=== PATIENT | male | born 1995 | race American Indian/Alaskan Native ===

== ENCOUNTER 2016-11-23 12:07 | Emergency (ER) | payer OTHER ==
[2016-11-23 12:15] VITALS: BP 126/72
[2016-11-23] MEDS ORDERED: XYLOCAINE 1% MPF 5 mL INFILTRATI ONE (13:27)
[2016-11-23] MEDS ORDERED: ROCEPHIN IM ONE (13:27)
--- NOTE | 2016-11-23 13:47 | Emergency Department Report ---
ED Extremity Problem HPI - General Chief complaint: Extremity Injury, Lower Stated complaint: BOTH FEET PAIN/POSS INFECTION/SWOLLEN Time Seen by Provider: 11/23/16 13:18 Source: patient Mode of arrival: Ambulatory Limitations: No Limitations - History of Present Illness Initial comments: PT states he has dealt with athlete's foot since he was in high school. PT states he has never been seen by a medical profession for treatment because he always had improvement with vinegar soaks and otc medications and frequent sock changes. PT states the rash between his R toes is improving. PT states two nights ago he was cleaning the freezer and he stepped in some water with his left foot. PT states since that time, he has had increase in L foot pain, swelling and feels "burning" PT states he is supposed to work tonight. PT unsure if he can work due to foot pain MD Complaint: extremity pain -: Gradual Location: bilateral lower extremity History of Same: Yes Severity scale (0 -10): 10 Quality: constant Consistency: constant Improves with: elevation (mild ), rest (mild ) Worsens with: weight bearing, walking, palpation Associated Symptoms: denies other symptoms. denies: chest pain, fever - Related Data Previous Rx's Medication Instructions Recorded Last Taken Type Acetaminophen/Codeine [Tylenol #3] 1 tab PO Q6H PRN #8 tab 11/23/16 Unknown Rx Cephalexin [Keflex] 500 mg PO Q6HR #40 capsule 11/23/16 Unknown Rx Clotrimazole [Athlete's Foot] 1 applicatio TP BID 30 Days 11/23/16 Unknown Rx Ibuprofen [Motrin] 600 mg PO Q8H PRN #15 tablet 11/23/16 Unknown Rx Sulfamethoxazole/Trimethoprim 1 each PO BID #20 tablet 11/23/16 Unknown Rx [Bactrim DS TAB] Allergies Allergy/AdvReac Type Severity Reaction Status Date / Time No Known Allergies Allergy Unverified 11/23/16 12:11 ED Review of Systems ROS: Stated complaint: BOTH FEET PAIN/POSS INFECTION/SWOLLEN Other details as noted in HPI Comment: All other systems reviewed and negative Constitutional: denies: chills, fever Cardiovascular: edema (localized to L foot ) Gastrointestinal: denies: nausea, vomiting Musculoskeletal: as per HPI Skin: as per HPI, rash, change in color ED Past Medical Hx - Past Medical History Previous Medical History?: No - Surgical History Past Surgical History?: No - Social History Smoking Status: Current Every Day Smoker Substance Use Type: Alcohol - Medications Home Medications: Home Medications Medication Instructions Recorded Confirmed Last Taken Type Acetaminophen/Codeine [Tylenol #3] 1 tab PO Q6H PRN #8 tab 11/23/16 Unknown Rx Cephalexin [Keflex] 500 mg PO Q6HR #40 capsule 11/23/16 Unknown Rx Clotrimazole [Athlete's Foot] 1 applicatio TP BID 30 Days 11/23/16 Unknown Rx Ibuprofen [Motrin] 600 mg PO Q8H PRN #15 tablet 11/23/16 Unknown Rx Sulfamethoxazole/Trimethoprim 1 each PO BID #20 tablet 11/23/16 Unknown Rx [Bactrim DS TAB] ED Physical Exam - General Limitations: No Limitations General appearance: alert, in no apparent distress - Head Head exam: Present: atraumatic, normocephalic, normal inspection - Eye Eye exam: Present: normal appearance, EOMI. Absent: conjunctival injection - ENT ENT exam: Present: normal exam, mucous membranes moist, normal external ear exam - Neck Neck exam: Present: normal inspection, full ROM - Respiratory Respiratory exam: Present: normal lung sounds bilaterally. Absent: respiratory distress - Cardiovascular Cardiovascular Exam: Present: regular rate, normal rhythm - Extremities Exam Extremities exam: Present: tenderness, pedal edema. Absent: normal inspection - Expanded Lower Extremity Exam Right Foot/Toe exam: Present: full ROM. Absent: normal inspection (rash inbetween toes ), tenderness, swelling Left Lower Leg exam: Present: normal inspection, full ROM. Absent: tenderness Ankle exam: Present: normal inspection, full ROM. Absent: tenderness, swelling Foot/Toe exam: Present: full ROM, tenderness, swelling, erythema. Absent: normal inspection (scaly rash inbetween webbing of toes. L foot with erythema, warmth and edema ), abrasion, subungual hematoma - Back Exam Back exam: Present: normal inspection, full ROM - Neurological Exam Neurological exam: Present: alert, oriented X3, normal gait - Psychiatric Psychiatric exam: Present: normal affect, normal mood - Skin Skin exam: Present: warm, dry, other (cracked scaly skin to rod toe webs). Absent: normal color ED Course Vital Signs 11/23/16 12:11 Temperature 97.3 F L Pulse Rate 63 Respiratory 18 Rate Blood Pressure 126/72 O2 Sat by Pulse 99 Oximetry - Reevaluation(s) Reevaluation #1: 11/23/16 14:01 PT given 1gm Rocephin IM for his cellulitis. PT given strict return precautions. PT has no questions at this time. - Pulse Oximetry Interpretation Digit-Finger Initial Pulse Oximetry Readin Actions Taken: none ED Medical Decision Making - Differential Diagnosis tinea pedis, cellulitis Critical Care Time: No Critical care attestation.: If time is entered above; I have spent that time in minutes in the direct care of this critically ill patient, excluding procedure time. ED Disposition Clinical Impression: Tinea pedis of both feet, Cellulitis of left foot Disposition: TO HOME OR SELFCARE Is pt being admited?: No Does the pt Need Aspirin: No Condition: Stable Instructions: Tinea Pedis (ED), Cellulitis (ED) Additional Instructions: keep your feet clean and dry take the antibiotics as prescribed return to the ED in 2 days for recheck If the redness, swelling or area of pain increases, or you develop fevers or vomiting, return to the ED No driving or alcohol after taking Tylenol #3 Try controlling your pain with Motrin before taking the Tylenol #3 Prescriptions: Acetaminophen/Codeine [Tylenol #3] 1 tab PO Q6H PRN #8 tab PRN Reason: Pain , Severe (7-10) Cephalexin [Keflex] 500 mg PO Q6HR #40 capsule Clotrimazole [Athlete's Foot] 1 applicatio TP BID 30 Days Ibuprofen [Motrin] 600 mg PO Q8H PRN #15 tablet PRN Reason: Pain Sulfamethoxazole/Trimethoprim [Bactrim DS TAB] 1 each PO BID #20 tablet Referrals: PRIMARY CARE, [Primary Care Provider] - 3-5 Days DOMINGA MATHUR MD [Staff Physician] - 3-5 Days [facility] [Outside] - 3-5 Days Forms: Work/School Release Form(ED) Time of Disposition: 14:05
== END 2016-11-23 14:30 | disposition home or self-care (01) ==
LOC: ED 12:07
DX: B35.3 Tinea pedis (principal); L03.116 Cellulitis of left lower limb; F17.200 Nicotine dependence, unspecified, uncomplicated
CPT/HCPCS: 96372; 99282; J0696